=== PATIENT | female | born 1980 | race Caucasian/White ===

== ENCOUNTER → 2021-03-11 | Outpatient (CLI) | payer BC ==
[~2021-03-11] MED LIST: CELEXA40 MG PO; PROGESTERONE200 MG PO; VITAMIN D250 MCG PO
[2021-03-11 12:17] LABS: HEMOGLOBIN 13.8 gm/dl (12.3-15.3); RED BLOOD COUNT 4.48 M/UL (4.00-5.10); WHITE BLOOD COUNT 8.9 K/UL (4.5-11.0)
== END ==
LOC: OPSV2 11:00
PROVIDERS: Obstetrics & Gynecology
DX: Z01.818 Encounter for other preprocedural examination (principal); N81.9 Female genital prolapse, unspecified
CPT/HCPCS: 81001; 85025; 93005

== ENCOUNTER → 2021-03-19 | Day surgery (SDC) | payer BC ==
[~2021-03-19] MED LIST changes: +DECADRON6 MG PO; +DOCUSATE SODIU250 MG PO; +DOXYCYCLINE HY100 MG PO; +HYCODAN 5 MG-1.55 ML PO; +HYDROCODONE-AC1 EACH PO; +IBUPROFEN600 MG PO
== END | disposition home or self-care (01) ==
LOC: OR 07:30
DX: N81.6 Rectocele (principal); N39.46 Mixed incontinence; F41.9 Anxiety disorder, unspecified; F17.290 Nicotine dependence, other tobacco product, uncomplicated; Z88.5 Allergy status to narcotic agent; Z79.899 Other long term (current) drug therapy; Z20.822 Contact with and (suspected) exposure to COVID-19
CPT/HCPCS: C1769; C1771; J0690; J1100; J1885; J2001; J2250; J2405; J2704; J2710; J3010; J7050; J7120

== ENCOUNTER 2021-03-21 19:24 | Emergency (ER) | payer BC ==
[~2021-03-21 19:24] MED LIST changes: -DECADRON6 MG PO; -DOXYCYCLINE HY100 MG PO; -HYCODAN 5 MG-1.55 ML PO
[2021-03-21 20:30] LABS: HEMOGLOBIN 12.3 gm/dl (12.3-15.3); RED BLOOD COUNT 4.11 M/UL (4.00-5.10); WHITE BLOOD COUNT 10.8 K/UL (4.5-11.0)
[2021-03-21 20:47] LABS: BUN/CREATININE RATIO 15 (0-10)
[2021-03-21] MEDS ORDERED: DECADRON6 MG PO (21:39)
[2021-03-21] MEDS ORDERED: DOXYCYCLINE HY100 MG PO (21:39)
[2021-03-21] MEDS ORDERED: HYCODAN 5 MG-1.55 ML PO (21:39)
== END 2021-03-21 22:06 | disposition home or self-care (01) ==
LOC: ER1 19:24
PROVIDERS: Emergency Medicine
DX: U07.1 COVID-19 (principal); F17.290 Nicotine dependence, other tobacco product, uncomplicated
CPT/HCPCS: 0240U; 71046; 80048; 85025; 96374; 99285; J1100